=== PATIENT | male | born 1940 | race Two or more races ===

== ENCOUNTER 2021-03-24 12:44 | Inpatient (IN) | payer MEDICARE ==
[~2021-03-24] VITALS: Ht 180.3 cm; Wt 56.3 kg
[2021-03-24] VITALS: BP 137/85
[2021-03-24] MEDS ORDERED: SODIUM CHLORIDE 0.9% 1000ML 1,000 ML IV STA (13:56)
[2021-03-24 14:16] LABS: BASOPHILS # (AUTO) 0.1 (0.0-0.1); BASOPHILS % 0.4 % (0.0-1.0); HEMATOCRIT 37.5 % (38.2-49.6); HEMOGLOBIN 11.2 g/dL (14.0-18.0); LYMPHOCYTES % 11.3 % (18.0-39.1); MEAN CORPUSCULAR HEMOGLOBIN 28.7 pg (28-32); MEAN CORPUSCULAR HGB CONC 29.9 g/dL (31-35); MEAN CORPUSCULAR VOLUME 96.2 fL (81-99); MONOCYTES # (AUTO) 1.8 (0.2-0.8); MONOCYTES % 10.3 % (4.4-11.3); NEUTROPHILS # (AUTO) 13.9 (2.1-6.9); NEUTROPHILS % 77.1 % (38.7-80.0); PLATELET COUNT 430 x10e3/uL (140-360); RED CELL DISTRIBUTION WIDTH 18.5 % (11.7-14.4)
[2021-03-24 14:33] LABS: INR 1.02; PARTIAL THROMBOPLASTIN TIME 18.2 seconds (23.8-35.5); PROTHROMBIN TIME 13.6 seconds (11.9-14.5)
[2021-03-24 14:41] LABS: ALBUMIN 2.5 g/dL (3.5-5.0); ALBUMIN/GLOBULIN RATIO 0.6 (0.8-2.0); ANION GAP 26.8 mmol/L (8-16); B-TYPE NATRIURETIC PEPTIDE2 77.5 pg/mL (0-100); CREATININE, SERUM 1.56 mg/dL (0.72-1.25); MAGNESIUM 2.2 MG/DL (1.3-2.1); POTASSIUM 4.8 mmol/L (3.5-5.1)
[2021-03-24 14:46] LABS: CALCIUM 15.3 mg/dL (8.4-10.2)
[2021-03-24 14:47] LABS: CREATINE KINASE MB 1.4 ng/mL (0-5.0)
[2021-03-24] MEDS ORDERED: PIPERACILLIN/TAZOBACTAM 3.375 GM in SODIUM CHLORIDE 0.9% 50ML 50 ML IV STA (14:48)
[2021-03-24] MEDS ORDERED: CALCITONIN SALMON 400 IU/2ML VIAL SC NR (15:00)
[2021-03-24] MEDS ORDERED: SODIUM CHLORIDE 0.9% 500ML 500 ML IV ONE (15:00)
[2021-03-24] MEDS ORDERED: PAMIDRONATE DISODIUM 90 MG in SODIUM CHLORIDE 0.9% 1000ML 1,000 ML IV ONE (15:00)
[2021-03-24 15:18] LABS: CLARITY,URINE CLEAR (CLEAR); COLOR,URINE YELLOW (YELLOW); KETONES,URINE TRACE (NEGATIVE); LEUKOCYTE ESTERASE ,URINE TRACE (NEGATIVE); NITRITE,URINE NEGATIVE (NEGATIVE); PROTEIN,URINE DIPSTICK 1+ (NEGATIVE); URINE UROBILINOGEN 0.2 mg/dL (0.2 - 1)
[2021-03-24 15:24] LABS: BACTERIA,URINE MODERATE /HPF; EPITHELIAL CELLS,URINE FEW /LPF
[2021-03-24] MEDS: SODIUM CHLORIDE 0.9% 1000ML 1,000 ML IV SCH ×2 (17:06→23:39)
[2021-03-24] MEDS: PIPERACILLIN/TAZOBACTAM 3.375 GM in SODIUM CHLORIDE 0.9% 50ML 50 ML IV SCH ×3 (18:24→23:39)
[2021-03-24] MEDS: ALBUTEROL SULF 0.083% NEB SOLN 3 ML NEB NEB SCH (18:24)
[2021-03-24 18:26] LABS: ABG HCO3 13 mmol/L (22-26); ABG PCO2 24 mmHg (35-45); ABG PH 7.31 (7.35-7.45); ABG PO2 193 mmHg (80-105); ABG TCO2 13
[2021-03-24 22:09] VITALS: BP 137/85
[2021-03-25] VITALS (7 sets, daily range): BP systolic 128–154; BP diastolic 84–93
[2021-03-25 01:01] LABS: CREATINE KINASE MB 4.1 ng/mL (0-5.0)
[2021-03-25] MEDS ORDERED: MOVANTIK12.5 MG PO (01:57)
[2021-03-25] MEDS ORDERED: TIZANIDINE HCL4 MG PO (01:57)
[2021-03-25 05:43] LABS: BASOPHILS % 0.2 % (0.0-1.0); HEMATOCRIT 29.6 % (38.2-49.6); HEMOGLOBIN 8.9 g/dL (14.0-18.0); LYMPHOCYTES # (AUTO) 1.6 (1.0-3.2); LYMPHOCYTES % 8.5 % (18.0-39.1); MEAN CORPUSCULAR HEMOGLOBIN 28.7 pg (28-32); MEAN CORPUSCULAR HGB CONC 30.1 g/dL (31-35); MEAN CORPUSCULAR VOLUME 95.5 fL (81-99); MONOCYTES # (AUTO) 2.1 (0.2-0.8); MONOCYTES % 11.1 % (4.4-11.3); NEUTROPHILS # (AUTO) 14.6 (2.1-6.9); PLATELET COUNT 298 x10e3/uL (140-360); RED CELL DISTRIBUTION WIDTH 18.8 % (11.7-14.4)
[2021-03-25] MEDS: PIPERACILLIN/TAZOBACTAM 3.375 GM in SODIUM CHLORIDE 0.9% 50ML 50 ML IV SCH ×4 (05:55→23:58)
[2021-03-25 05:59] LABS: ALBUMIN/GLOBULIN RATIO 0.7 (0.8-2.0); ANION GAP 19.7 mmol/L (8-16); CREATININE, SERUM 1.41 mg/dL (0.72-1.25); POTASSIUM 3.7 mmol/L (3.5-5.1)
[2021-03-25 06:22] LABS: CREATINE KINASE MB 1.7 ng/mL (0-5.0)
[2021-03-25] MEDS: SODIUM CHLORIDE 0.9% 1000ML 1,000 ML IV SCH ×2 (07:19→11:59)
[2021-03-25] MEDS: MORPHINE SULFATE INJ 2 MG/ML SYR IV PRN (13:30)
[2021-03-25] MEDS ORDERED: SODIUM BICARBONATE 8.4% 50 ML in SODIUM CHLORIDE 0.45% 1,000 ML IV SCH (15:00)
[2021-03-26] VITALS (7 sets, daily range): BP systolic 111–140; BP diastolic 61–82
[2021-03-26] MEDS ORDERED: FUROSEMIDE INJ 10 MG/ML 4 ML VIAL IV STA (03:02)
[2021-03-26] MEDS: MORPHINE SULFATE INJ 2 MG/ML SYR IV PRN (03:07)
[2021-03-26 04:47] LABS: BASOPHILS # (AUTO) 0.1 (0.0-0.1); BASOPHILS % 0.4 % (0.0-1.0); HEMATOCRIT 34.4 % (38.2-49.6); HEMOGLOBIN 10.1 g/dL (14.0-18.0); LYMPHOCYTES # (AUTO) 0.9 (1.0-3.2); LYMPHOCYTES % 4.5 % (18.0-39.1); MEAN CORPUSCULAR HEMOGLOBIN 28.8 pg (28-32); MEAN CORPUSCULAR HGB CONC 29.4 g/dL (31-35); NEUTROPHILS # (AUTO) 16.7 (2.1-6.9); NEUTROPHILS % 81.5 % (38.7-80.0); PLATELET COUNT 230 x10e3/uL (140-360); RED BLOOD COUNT 3.51 x10e6/uL (4.3-5.7); RED CELL DISTRIBUTION WIDTH 19.7 % (11.7-14.4)
[2021-03-26 05:07] LABS: MAGNESIUM 1.7 MG/DL (1.3-2.1); PHOSPHORUS 3.4 MG/DL (2.3-4.7)
[2021-03-26 05:29] LABS: THYROID STIMULATING HORMONE 1.238 uIU/mL (0.350-4.940)
[2021-03-26] MEDS: PIPERACILLIN/TAZOBACTAM 3.375 GM in SODIUM CHLORIDE 0.9% 50ML 50 ML IV SCH ×4 (06:02→23:31)
[2021-03-26 06:03] LABS: ANION GAP 22.3 mmol/L (8-16); CALCIUM 11.4 mg/dL (8.4-10.2); CREATININE, SERUM 1.49 mg/dL (0.72-1.25); POTASSIUM 3.3 mmol/L (3.5-5.1)
[2021-03-26] MEDS ORDERED: DEXTROSE 50% SYRINGE 50 ML IV ONE ×2 (06:29→07:00)
[2021-03-26] MEDS ORDERED: DEXTROSE 5%/0.45% SOD CHL 1,000 ML IV SCH (10:15)
[2021-03-26] MEDS ORDERED: SODIUM BICARBONATE 8.4% 50 ML in DEXTROSE 5%/0.45% SOD CHL 1,000 ML IV SCH (14:00)
[2021-03-26] MEDS ORDERED: POTASSIUM CHLORIDE 20 MEQ TAB CR PO ONE (14:00)
[2021-03-26] MEDS: SODIUM BICARBONATE 8.4% 50 ML in DEXTROSE 5% 1,000 ML IV SCH (14:41)
[2021-03-26] MEDS: SODIUM BICARBONATE 650 MG TAB PO SCH (16:53)
[2021-03-26] MEDS: ALBUTEROL SULF 0.083% NEB SOLN 3 ML NEB NEB SCH (21:58)
[2021-03-27 01:16] VITALS: BP 114/48
[2021-03-27] MEDS: ALBUTEROL SULF 0.083% NEB SOLN 3 ML NEB NEB SCH ×3 (02:40→10:54)
[2021-03-27] MEDS: SODIUM BICARBONATE 8.4% 50 ML in DEXTROSE 5% 1,000 ML IV SCH (04:34)
[2021-03-27 05:05] LABS: BASOPHILS # (AUTO) 0.1 (0.0-0.1); BASOPHILS % 0.2 % (0.0-1.0); HEMOGLOBIN 10.7 g/dL (14.0-18.0); LYMPHOCYTES # (AUTO) 1.2 (1.0-3.2); LYMPHOCYTES % 5.1 % (18.0-39.1); MEAN CORPUSCULAR HEMOGLOBIN 28.6 pg (28-32); MEAN CORPUSCULAR HGB CONC 28.9 g/dL (31-35); MEAN CORPUSCULAR VOLUME 98.9 fL (81-99); MONOCYTES # (AUTO) 2.2 (0.2-0.8); MONOCYTES % 9.5 % (4.4-11.3); NEUTROPHILS # (AUTO) 19.2 (2.1-6.9); NEUTROPHILS % 82.3 % (38.7-80.0); PLATELET COUNT 158 x10e3/uL (140-360); RED BLOOD COUNT 3.74 x10e6/uL (4.3-5.7); RED CELL DISTRIBUTION WIDTH 20.7 % (11.7-14.4)
[2021-03-27 05:39] LABS: ALBUMIN 1.9 g/dL (3.5-5.0); ALBUMIN/GLOBULIN RATIO 0.6 (0.8-2.0); ANION GAP 29.9 mmol/L (8-16); CALCIUM 11.5 mg/dL (8.4-10.2)
[2021-03-27 05:45] LABS: POTASSIUM 2.9 mmol/L (3.5-5.1)
[2021-03-27 05:51] VITALS: BP 123/76
[2021-03-27] MEDS: PIPERACILLIN/TAZOBACTAM 3.375 GM in SODIUM CHLORIDE 0.9% 50ML 50 ML IV SCH (06:14)
[2021-03-27 06:34] LABS: MAGNESIUM 1.7 MG/DL (1.3-2.1); PHOSPHORUS 3.1 MG/DL (2.3-4.7)
[2021-03-27] MEDS: POTASSIUM CHLORIDE 20MEQ/100ML 200 ML IV ONE ×2 (06:35→06:45)
[2021-03-27] MEDS ORDERED: POTASSIUM CHLORIDE 20MEQ/100ML 200 ML IV ONE (06:45)
[2021-03-27 08:59] VITALS: BP 134/67
[2021-03-27] MEDS: SODIUM BICARBONATE 650 MG TAB PO SCH (09:53)
[2021-03-27] MEDS ORDERED: MORPHINE SULFATE INJ 4 MG/ML INJ 1ML IV SCH (10:45)
[2021-03-27] MEDS ORDERED: LORAZEPAM INJ 2 MG/ML VIAL IV SCH (12:00)
== END 2021-03-27 19:02 | disposition expired | DRG 871 ==
LOC: ER 13:40 → ERHOLD 20:13 → MED/SURG2 22:11
PROVIDERS: ADMIT Internal Medicine; ATTEND Internal Medicine
PROC: 02HV33Z Insertion of Infusion Device into Superior Vena Cava, Percutaneous Approach (ICD-10-PCS; principal; 2021-03-24)
DX: A41.9 Sepsis, unspecified organism (principal); J18.9 Pneumonia, unspecified organism; R65.21 Severe sepsis with septic shock; N17.0 Acute kidney failure with tubular necrosis; G92 Toxic encephalopathy; R64 Cachexia; N39.0 Urinary tract infection, site not specified; E87.4 Mixed disorder of acid-base balance; E87.0 Hyperosmolality and hypernatremia; Z68.1 Body mass index [BMI] 19.9 or less, adult; C83.37 Diffuse large B-cell lymphoma, spleen; E83.52 Hypercalcemia; E86.0 Dehydration; N28.9 Disorder of kidney and ureter, unspecified; Z90.81 Acquired absence of spleen; Z88.2 Allergy status to sulfonamides; E87.6 Hypokalemia; Z98.890 Other specified postprocedural states; R62.7 Adult failure to thrive; Z66 Do not resuscitate; Z20.822 Contact with and (suspected) exposure to COVID-19
CPT/HCPCS: 36415; 36569; 36600; 51700; 70450; 71045; 71250; 74176; 80048; 80053; 81001; 82140; 82550; 82553; 82607; 82746; 82805; 82948; 83605; 83690; 83735; 83880; 84100; 84443; 84484; 85025; 85610; 85730; 87040; 87086; 93005; 94640; 99251; 99284; J0456; J1940; J2270; J2430; J2543; J3480; J7030; J7040; J7050; J7070; J7799; U0002